=== PATIENT | female | born 1945 | race Caucasian/White ===

== ENCOUNTER → 2016-06-11 | Outpatient (CLI) | payer OTHER ==
[~2016-06-11] MED LIST: ATEN50TA8 PO; DIPH25TA24 PO; HYDR5TAB27 PO; LEVO100T84 PO; LISI-461 PO; LORA-741 PO; OXYB5TAB74 PO; PRM/45 PO; SIMV40TA2 PO; VALA500T60 PO; [UNRECOGNIZED DRUG - OTHER]; lisinopril PO
[2016-06-11 13:59] LABS: BLOOD UREA NITROGEN 14 mg/dl (7-18); BUN/CREATININE RATIO 13.2 (10-20); CALCIUM 9.2 mg/dl (8.5-10.1); CARBON DIOXIDE 29 mmol/L (21-32); CHLORIDE 102 mmol/L (98-107); GLUCOSE 82 mg/dl (70-99); POTASSIUM 3.4 mmol/L (3.5-5.1); SODIUM 139 mmol/L (136-145)
[2016-06-11 14:05] LABS: ESTIMATED AVERAGE GLUCOSE 100 mg/dl; HA1C FLAG Normal (Normal)
[2016-06-11 14:10] LABS: CHOLESTEROL 144 mg/dl (0-200); HDL CHOLESTEROL 71 mg/dl; TRIGLYCERIDES 122 mg/dl (0-150); VERY LOW DENSITY LIPOPROT CALC 24 mg/dl
== END | disposition home or self-care (01) ==
LOC: C.LABSPEC 12:24
PROVIDERS: ATTEND Internal Medicine
DX: E03.9 Hypothyroidism, unspecified (principal); I10 Essential (primary) hypertension; R73.9 Hyperglycemia, unspecified; E78.5 Hyperlipidemia, unspecified

== ENCOUNTER → 2016-07-26 | Outpatient (CLI) | payer OTHER ==
[~2016-07-26] MED LIST changes: +DTR/5 PO; -OXYB5TAB74 PO
--- NOTE | 2016-07-26 16:39 | MAMMOGRAPHY REPORT ---
BILATERAL DIGITAL SCREENING MAMMOGRAM WITH CAD: 07/26/2016 TECHNIQUE: Current study was also evaluated with a Computer Aided Detection (CAD) system. Bilatera l CC and MLO views were obtained. COMPARISON: Comparison is made to exams dated: 07/24/2015 mammogram, 07/01/2013 mammogram, 07/22/2014 m ammogram, 06/18/2012 mammogram, and 06/07/2011 mammogram - [facility]. BREAST COMPOSITION: There are scattered areas of fibroglandular density in both breasts. FINDINGS: No suspicious masses, calcifications, or areas of architectural distortion are noted in e ither breast. There has been no significant interval change compared to prior exams. IMPRESSION: ACR BI-RADS CATEGORY 1: NEGATIVE There is no mammographic evidence of malignancy. A 1 year screening mammogram is recommended. The p atient will receive written notification of the results. Approximately 10% of breast cancers are not detected with mammography. A negative mammographic repor t should not delay biopsy if a clinically suggestive mass is present. Christina Gutierrez M.D. ah/:07/26/2016 16:06:02 Supervisor Insulation: Kala MO(R)(M), [facility] letter sent: Normal 1/2 BI-RADS Code: ACR BI-RADS Category 1: Negative
== END | disposition home or self-care (01) ==
LOC: C.MAMM 13:19
PROVIDERS: ATTEND Internal Medicine
DX: Z12.31 Encounter for screening mammogram for malignant neoplasm of breast (principal)

== ENCOUNTER → 2017-01-22 | Outpatient (CLI) | payer OTHER ==
[~2017-01-22] MED LIST changes: -DTR/5 PO; +OXYB5TAB74 PO
--- NOTE | 2017-01-22 15:32 | DIAGNOSTIC IMAGING REPORT ---
RIBS BILATERAL WITH PA CHEST CLINICAL HISTORY: Bilateral rib pain status post trauma COMPARISON STUDY: No previous studies for comparison. FINDINGS: The erect chest reveals no pneumothorax. There is borderline elevation of the right hemidiaphragm. No rib fractures are visualized. IMPRESSION: No evidence of pneumothorax. No rib fractures are visualized. Electronically signed by: Jeremiah Joyce M.D. 01/22/2017 3:30 PM Dictated Date/Time: 01/22/2017 3:29 PM
--- NOTE | 2017-01-22 16:02 | DIAGNOSTIC IMAGING REPORT ---
THORACIC SPINE 3 VIEWS ROUTINE CLINICAL HISTORY: Back pain status post trauma COMPARISON STUDY: No previous studies for comparison. FINDINGS: There is a minor spinal curvature convex to the right. The paraspinal line is not displaced. There are multilevel degenerative changes. No fractures or traumatic subluxations are visualized. IMPRESSION: No fractures or traumatic subluxations are visualized on conventional radiographic imaging. Electronically signed by: Jeremiah Joyce M.D. 01/22/2017 4:00 PM Dictated Date/Time: 01/22/2017 4:00 PM
== END | disposition home or self-care (01) ==
LOC: C.RAD 14:48
PROVIDERS: ATTEND Internal Medicine
DX: S29.9XXA Unspecified injury of thorax, initial encounter (principal); W19.XXXA Unspecified fall, initial encounter

== ENCOUNTER → 2017-04-11 | Outpatient (CLI) | payer OTHER ==
[~2017-04-11] MED LIST changes: +DTR/5 PO; -OXYB5TAB74 PO
[2017-04-11 13:42] LABS: BLOOD UREA NITROGEN 22 mg/dl (7-18); BUN/CREATININE RATIO 24.9 (10-20); CALCIUM 8.8 mg/dl (8.5-10.1); CARBON DIOXIDE 30 mmol/L (21-32); CHLORIDE 103 mmol/L (98-107); CHOLESTEROL 146 mg/dl (0-200); CREATININE 0.88 mg/dl (0.60-1.20); GLUCOSE 89 mg/dl (70-99); POTASSIUM 3.7 mmol/L (3.5-5.1); SODIUM 136 mmol/L (136-145)
[2017-04-11 13:50] LABS: ALB/GLOB RATIO 0.8 (0.9-2); ALKALINE PHOSPHATASE 151 U/L (45-117); ALT/SGPT 38 U/L (12-78); AST/SGOT 22 U/L (15-37); CHOLESTEROL/HDL RATIO 2.9; HDL CHOLESTEROL 50 mg/dl; THYROID STIMULATING HORMONE 0.061 uIu/ml (0.300-4.500); TRIGLYCERIDES 89 mg/dl (0-150); VERY LOW DENSITY LIPOPROT CALC 18 mg/dl
== END | disposition home or self-care (01) ==
LOC: C.LABSPEC 12:35
PROVIDERS: ATTEND Internal Medicine
DX: Z00.00 Encounter for general adult medical examination without abnormal findings (principal); E03.9 Hypothyroidism, unspecified; E78.5 Hyperlipidemia, unspecified

== ENCOUNTER → 2017-05-26 | Outpatient (CLI) | payer OTHER ==
[2017-06-03 13:29] LABS: FECAL OCCULT BLOOD #1 NEGATIVE (NEGATIVE); FECAL OCCULT BLOOD #2 NEGATIVE (NEGATIVE); FECAL OCCULT BLOOD #3 POSITIVE (NEGATIVE)
== END | disposition home or self-care (01) ==
LOC: C.LABSPEC 12:33
PROVIDERS: ATTEND Internal Medicine
DX: Z12.11 Encounter for screening for malignant neoplasm of colon (principal)

== ENCOUNTER → 2017-06-23 | Outpatient (CLI) | payer OTHER ==
[2017-06-23 15:00] LABS: BLOOD UREA NITROGEN 41 mg/dl (7-18); CALCIUM 9.2 mg/dl (8.5-10.1); CARBON DIOXIDE 31 mmol/L (21-32); CHOLESTEROL 182 mg/dl (0-200); CREATININE 2.05 mg/dl (0.60-1.20); GLUCOSE 100 mg/dl (70-99); POTASSIUM 3.4 mmol/L (3.5-5.1); SODIUM 133 mmol/L (136-145)
[2017-06-23 15:11] LABS: LDL CHOLESTEROL (DIRECT) 106 mg/dl
[2017-06-24 06:47] LABS: HEMOGLOBIN A1C 5.6 % (4.5-5.6)
== END | disposition home or self-care (01) ==
LOC: C.LABSPEC 14:26
PROVIDERS: ATTEND Internal Medicine
DX: I10 Essential (primary) hypertension (principal); R73.9 Hyperglycemia, unspecified; E78.5 Hyperlipidemia, unspecified; E03.9 Hypothyroidism, unspecified; N39.0 Urinary tract infection, site not specified

== ENCOUNTER → 2017-06-30 | Outpatient (CLI) | payer OTHER ==
[2017-06-30 13:29] LABS: BLOOD UREA NITROGEN 19 mg/dl (7-18); CALCIUM 9.5 mg/dl (8.5-10.1); CARBON DIOXIDE 32 mmol/L (21-32); CREATININE 1.28 mg/dl (0.60-1.20); GLUCOSE 87 mg/dl (70-99); POTASSIUM 3.4 mmol/L (3.5-5.1); SODIUM 133 mmol/L (136-145)
== END | disposition home or self-care (01) ==
LOC: C.LABSPEC 12:49
PROVIDERS: ATTEND Internal Medicine
DX: R94.4 Abnormal results of kidney function studies (principal)

== ENCOUNTER → 2017-07-29 | Outpatient (CLI) | payer OTHER ==
--- NOTE | 2017-07-30 07:56 | MAMMOGRAPHY REPORT ---
BILATERAL DIGITAL SCREENING MAMMOGRAM TOMOSYNTHESIS WITH CAD: 07/29/2017 CLINICAL HISTORY: Routine screening. Patient has no complaints. TECHNIQUE: Breast tomosynthesis in addition to standard 2D mammography was performed. Current study was also evaluated with a Computer Aided Detection (CAD) system. COMPARISON: Comparison is made to exams dated: 07/26/2016 mammogram, 07/24/2015 mammogram, 07/22/2014 m ammogram, 07/01/2013 mammogram, 06/18/2012 mammogram, and 06/07/2011 mammogram - [facility]. BREAST COMPOSITION: There are scattered areas of fibroglandular density in both breasts. FINDINGS: There are mild vascular calcifications in the breasts. Scattered benign-appearing round an d punctate microcalcifications. No suspicious mass, architectural distortion or cluster of suspiciou s microcalcifications is seen. IMPRESSION: ACR BI-RADS CATEGORY 1: NEGATIVE There is no mammographic evidence of malignancy. A 1 year screening mammogram is recommended. The pa tient will receive written notification of the results. Approximately 10% of breast cancers are not detected with mammography. A negative mammographic report should not delay biopsy if a clinically suggestive mass is present. Asia Dykes M.D. ay/:07/29/2017 17:35:30 Assembly Room Supervisor: Kala Acuna, [facility] letter sent: Normal 1/2 BI-RADS Code: ACR BI-RADS Category 1: Negative
== END | disposition home or self-care (01) ==
LOC: C.MAMM 13:17
PROVIDERS: ATTEND Internal Medicine
DX: Z12.31 Encounter for screening mammogram for malignant neoplasm of breast (principal)

== ENCOUNTER 2017-11-26 20:28 | Emergency (ER) | payer OTHER ==
[~2017-11-26] VITALS: Ht 154.9 cm; Wt 78.4 kg
[2017-11-26] MEDS ORDERED: ONDANSETRON INJ 2 MG/ML 2 ML VIAL IV STA (20:48)
[2017-11-26] MEDS ORDERED: ACETAMINOPHEN 500 MG TAB PO STA (20:48)
[2017-11-26 20:52] VITALS: O2SAT 95; Ht 154.9 cm; Wt 78.4 kg
[2017-11-26 21:15] LABS: BASO % 0.1 %; BASO ABS # 0.01 K/uL (0-0.2); EOS % 0.6 %; EOS ABS # 0.07 K/uL (0-0.5); HEMATOCRIT 34.6 % (37-47); HEMOGLOBIN 11.5 g/dL (12.0-16.0); IG# 0.02 K/uL (0.00-0.02); LYMPH % 7.8 %; LYMPH ABS # 0.91 K/uL (1.2-3.4); MEAN CELL VOLUME 87.4 fL (80-100); MEAN CORPUSCULAR HGB CONC 33.2 g/dl (32-36); MEAN PLATELET VOLUME 10.2 fL (7.4-10.4); MONO % 4.8 %; MONO ABS # 0.56 K/uL (0.11-0.59); NEUT % 86.5 %; NEUT ABS # 10.05 K/uL (1.4-6.5); PLATELET COUNT 254 K/uL (130-400); RED CELL DISTRIBUTION WIDTH CV 13.5 % (11.5-14.5); RED CELL DISTRIBUTION WIDTH SD 43.2 fL (36.4-46.3); WHITE BLOOD COUNT 11.62 K/uL (4.8-10.8)
[2017-11-26 21:38] LABS: BLOOD UREA NITROGEN 12 mg/dl (7-18); CALCIUM 9.6 mg/dl (8.5-10.1); CARBON DIOXIDE 30 mmol/L (21-32); CKMB < 1.0 ng/ml (0.5-3.6); CREATININE 1.06 mg/dl (0.60-1.20); GLUCOSE 116 mg/dl (70-99); POTASSIUM 3.3 mmol/L (3.5-5.1); SODIUM 136 mmol/L (136-145)
--- NOTE | 2017-11-26 22:02 | DIAGNOSTIC IMAGING REPORT ---
CHEST ONE VIEW PORTABLE CLINICAL HISTORY: Respiratory distress COMPARISON STUDY: 01/22/2017 FINDINGS: There is elevation the right hemidiaphragm. The heart is at the upper limits of normal in size. There is no failure. There is no focal pulmonary consolidation. There are no pleural effusions.[ IMPRESSION: Elevated right hemidiaphragm. No active disease in the chest. Electronically signed by: Jeremiah Joyce M.D. 11/26/2017 10:01 PM Dictated Date/Time: 11/26/2017 10:00 PM
[2017-11-26] MEDS ORDERED: TORS20TA2 PO (22:12)
[2017-11-26] MEDS ORDERED: LEVO150T9 PO (22:12)
[2017-11-26] MEDS ORDERED: LISI-725 PO (22:12)
[2017-11-26] MEDS ORDERED: ATOR-24 PO (22:12)
[2017-11-26] MEDS ORDERED: DIPH25CA65 PO (22:14)
[2017-11-26] MEDS ORDERED: AMOX875T PO (23:33)
[2017-11-26 23:43] VITALS: BP 135/80; PULSE 69; TEMP 38; O2SAT 95
[2017-11-26] MEDS ORDERED: AMOXICIL/CLAVU 875MG HOME PACK PO ONE (23:45)
--- NOTE | 2017-11-27 01:24 | EMERGENCY ROOM VISIT NOTE ---
History Report prepared by John: Lenore Marcelo Under the Supervision of: Dr. John Johnston M.D. First contact with patient: 20:37 Chief Complaint: SHORTNESS OF BREATH Stated Complaint: SOB History of Present Illness The patient is a 72 year old female who presents to the Emergency Room with complaints of shortness of breath that started earlier today. The patient states that she has been feeling unwell for a few days and reports having a cough with mucus production, hot/cold, fever, nausea, abdominal pain, chest tightness, fatigue, weakness, right arm pain, and a headache. The patient states that she also had pain in her lower back last week, which she took pain medication for. The patient notes that her back still bothers her but the pain is not as severe as it was last week. She currently rates her overall pain a 5/ 10. The patient reports that she only ate a cookie today and took Atenolol, but she notes she has not taken medication for her pain. The patient reports a history of hypertension, hysterectomy, hyperthyroidism, urinary infections, and pneumonia. Pt denies LOC, diaphoresis, visual changes, neck pain, vomiting, abdominal pain, melena, hematochezia, urinary symptoms, numbness, lymphadenopathy, rash, or other complaints. Source of History: patient Onset: earlier today Position: chest Symptom Intensity: 5/10 Quality: other Associated Symptoms: + fevers, + headache, + cough (with mucus production), + chest pain (tightness), + nausea, + back pain, + fatigue, + weakness Note: additional symptoms: hot.cold, right arm pain Review of Systems See HPI for pertinent positives and negatives. A total of ten systems were reviewed and were otherwise negative. Past Medical & Surgical Medical Problems: (1) Bilateral tubal ligation (2) HYPERTENSION NOS (3) HYPOTHYROIDISM NOS (4) Hysterectomy (5) Pneumonia (6) PURE HYPERCHOLESTEROLEM (7) Tonsillectomy (8) Urinary tract infection Family History No pertinent family history Social History Smoking Status: Never Smoker Drug Use: none Marital Status: Housing Status: lives with family Current/Historical Medications Scheduled Amoxicillin & Pot Clavulanate (Augmentin 875-125 mg), 875 MG PO BID Atenolol (Tenormin), 50 MG PO BID Atorvastatin (Lipitor), 40 MG PO DAILY Levothyroxine Sodium (Levothyroxine Sodium), 1 TAB PO DAILY Lisinopril (Zestril), 20 MG PO DAILY Torsemide (Demadex), 1 TAB PO DAILY Scheduled PRN Diphenhydramine Hcl (Benadryl Allergy), 1 CAP PO HS PRN for ALLERGIES Lorazepam (Ativan), 0.5 MG PO TID PRN Allergies Coded Allergies: No Known Allergies (Verified , 11/26/17) Physical Exam Vital Signs Date Time Temp Pulse Resp B/P (MAP) Pulse Ox O2 Delivery O2 Flow Rate FiO2 11/26/17 23:43 38.0 69 21 135/80 95 11/26/17 22:35 69 21 135/80 95 Room Air 11/26/17 22:03 70 147/80 11/26/17 21:28 74 24 159/102 11/26/17 20:52 95 Room Air 11/26/17 20:50 95 Room Air 11/26/17 20:41 88 11/26/17 20:30 38.0 90 22 184/104 93 Room Air Physical Exam GENERAL: Awake, alert, uncomfortable-appearing, in no distress HENT: Normocephalic, atraumatic. Oropharynx unremarkable. EYES: Normal conjunctiva. Sclera non-icteric. NECK: Supple. No nuchal rigidity. FROM. No masses. RESPIRATORY: Clear to auscultation. No wheezes. No rales. Normal respiratory effort. CARDIAC: Normal rate. Normal rhythm. No murmurs. No rubs. Extremities warm and well perfused. Pulses equal. No JVD. GI: Soft, non-distended. No tenderness to palpation. No rebound or guarding. No masses. RECTAL: Deferred. MUSCULOSKELETAL: Atraumatic. Chest examination reveals no tenderness. The back is symmetrical on inspection without obvious abnormality. There is no CVA tenderness to palpation. No joint edema. LOWER EXTREMITIES: Calves are equal size bilaterally and non-tender. No edema. No discoloration. NEURO: Normal sensorium. No sensory or motor deficits noted. SKIN: No rash or jaundice noted. Medical Decision & Procedures ER Provider Diagnostic Interpretation: Radiology results as stated below per my review and radiologist interpretation: CHEST ONE VIEW PORTABLE CLINICAL HISTORY: Respiratory distress COMPARISON STUDY: 01/22/2017 FINDINGS: There is elevation the right hemidiaphragm. The heart is at the upper limits of normal in size. There is no failure. There is no focal pulmonary consolidation. There are no pleural effusions.[ IMPRESSION: Elevated right hemidiaphragm. No active disease in the chest. Electronically signed by: Jeremiah Joyce M.D. 11/26/2017 10:01 PM Dictated Date/Time: 11/26/2017 10:00 PM Laboratory Results 11/26/17 21:03 Red Blood Count 3.96, Mean Corpuscular Volume 87.4, Mean Corpuscular Hemoglobin 29.0, Mean Corpuscular Hemoglobin Concent 33.2, Mean Platelet Volume 10.2, Neutrophils (%) (Auto) 86.5, Lymphocytes (%) (Auto) 7.8, Monocytes (%) (Auto) 4.8, Eosinophils (%) (Auto) 0.6, Basophils (%) (Auto) 0.1, Neutrophils # (Auto) 10.05, Lymphocytes # (Auto) 0.91, Monocytes # (Auto) 0.56, Eosinophils # (Auto) 0.07, Basophils # (Auto) 0.01 11/26/17 21:03 Test 11/26/17 21:03 11/26/17 21:09 11/26/17 22:55 White Blood Count 11.62 K/uL (4.8-10.8) Red Blood Count 3.96 M/uL (4.2-5.4) Hemoglobin 11.5 g/dL (12.0-16.0) Hematocrit 34.6 % (37-47) Mean Corpuscular Volume 87.4 fL (80-100) Mean Corpuscular Hemoglobin 29.0 pg (25-34) Mean Corpuscular Hemoglobin Concent 33.2 g/dl (32-36) Platelet Count 254 K/uL (130-400) Mean Platelet Volume 10.2 fL (7.4-10.4) Neutrophils (%) (Auto) 86.5 % Lymphocytes (%) (Auto) 7.8 % Monocytes (%) (Auto) 4.8 % Eosinophils (%) (Auto) 0.6 % Basophils (%) (Auto) 0.1 % Neutrophils # (Auto) 10.05 K/uL (1.4-6.5) Lymphocytes # (Auto) 0.91 K/uL (1.2-3.4) Monocytes # (Auto) 0.56 K/uL (0.11-0.59) Eosinophils # (Auto) 0.07 K/uL (0-0.5) Basophils # (Auto) 0.01 K/uL (0-0.2) RDW Standard Deviation 43.2 fL (36.4-46.3) RDW Coefficient of Variation 13.5 % (11.5-14.5) Immature Granulocyte % (Auto) 0.2 % Immature Granulocyte # (Auto) 0.02 K/uL (0.00-0.02) Anion Gap 6.0 mmol/L (3-11) Est Creatinine Clear Calc Drug Dose 44.1 ml/min Estimated GFR () 59.9 Estimated GFR (Non- 51.7 BUN/Creatinine Ratio 11.7 (10-20) Calcium Level 9.6 mg/dl (8.5-10.1) Total Creatine Kinase 61 U/L (26-192) Creatine Kinase MB < 1.0 ng/ml (0.5-3.6) Creatine Kinase MB Ratio (0-3.0) Troponin I < 0.015 ng/ml (0-0.045) Bedside Lactic Acid Venous 1.21 mmol/L (0.90-1.70) Urine Color YELLOW Urine Appearance CLEAR (CLEAR) Urine pH 8.0 (4.5-7.5) Urine Specific [place] 1.017 (1.000-1.030) Urine Protein NEG (NEG) Urine Glucose (UA) NEG (NEG) Urine Ketones NEG (NEG) Urine Occult Blood TRACE (NEG) Urine Nitrite NEG (NEG) Urine Bilirubin NEG (NEG) Urine Urobilinogen NEG (NEG) Urine Leukocyte Esterase NEG (NEG) Urine WBC (Auto) 1-5 /hpf (0-5) Urine RBC (Auto) 0-4 /hpf (0-4) Urine Hyaline Casts (Auto) 1-5 /lpf (0-5) Urine Epithelial Cells (Auto) >30 /lpf (0-5) Urine Bacteria (Auto) NEG (NEG) Laboratory results reviewed by me Medications Administered Medications (Trade) Dose Ordered Sig/Nadir Route Start Time Stop Time Status Last Admin Dose Admin Acetaminophen (Tylenol Tab) 1,000 mg NOW STAT PO 11/26/17 20:48 11/26/17 20:51 DC 11/26/17 21:09 1,000 MG Ondansetron HCl (Zofran Inj) 4 mg NOW STAT IV 11/26/17 20:48 11/26/17 20:51 DC 11/26/17 21:09 4 MG Amoxicillin/ Clavulanate Potassium (Augmentin 875MG Home Pack) 1 homepack UD ONCE PO 11/26/17 23:45 11/26/17 23:46 DC 11/26/17 23:37 1 HOMEPACK ECG Per My Interpretation Indication: SOB/dyspnea Rate (beats per minute): 90 Rhythm: normal sinus Findings: other (no ST elevation, no ST depression, no PACs, no PVCs) ED Course 2044: The patient was evaluated in room C11B. A complete history and physical exam was performed. 2047: Ordered Zofran Inj 4 mg IV, Tylenol Tab 1000 mg PO. 4: I reevaluated the patient. Discussed results and discharge instructions: She verbalized understanding and agreement. The patient is ready for discharge. 5: Ordered Amoxicillin/Clavulanate Potassium 1 homepack PO. Medical Decision Prior records/ancillary studies reviewed. Triage Nursing notes reviewed and agree them. Additional history obtained from the patient's . The patient's history was concerning for fever, flulike symptoms. Differential diagnosis: Etiologies such as otitis, pharyngitis, pneumonia, influenza,meningitis, urinary tract infection, sepsis, bacteremia, viral syndrome, as well as others were entertained. Physical examination: As above. ER treatment provided: IV Zofran Oral Tylenol On reassessment the patient felt much better. Diagnostics interpreted by me: ECG: Normal The labs revealed a slight leukocytosis on CBC. Chemistry panel was unremarkable. Cardiac markers negative. Her urinalysis was unremarkable. Imaging studies: Chest x-ray as above The patient had flulike symptoms. She has had a productive cough. She does note a history of pneumonia. Her chest x-ray did not show any obvious findings however she did have a leukocytosis. Her fever resolved with Tylenol. She does note some sinus drainage as well. I discussed treatment with Augmentin, Tylenol, rest, and fluids with close outpatient follow-up and the patient and felt very comfortable with this plan. Given the productive cough, shortness of breath and fever I am concerned about an early pneumonia and an early sinus infections possible as well. I gave my usual and customary discussion regarding this issue. By the evaluation outlined above other emergent etiologies such as those listed in the differential, as well as others, were deemed relatively unlikely. The patient was educated about the findings as listed above. All questions were answered and the patient was pleased with the treatment. Return instructions were outlined and the patient was discharged in stable condition. The patient was referred to her PCP for follow-up for a recheck of the current condition. Medication Reconcilliation Current Medication List: was personally reviewed by me Blood Pressure Screening Patient's blood pressure: Elevated blood pressure Blood pressure disposition: Referred to PCP Impression Primary Impression: Febrile illness Additional Impression: Productive cough Scribe Attestation The scribe's documentation has been prepared under my direction and personally reviewed by me in its entirety. I confirm that the note above accurately reflects all work, treatment, procedures, and medical decision making performed by me. Departure Information Dispostion Home / Self-Care Prescriptions Amoxicillin & Pot Clavulanate (Augmentin 875-125 mg) 1 Tab Tab 875 MG PO BID for 7 Days, #14 TAB Prov: John Johnston MD 11/26/17 Referrals Abimael Perdomo M.D. (PCP) Forms HOME CARE DOCUMENTATION FORM, IMPORTANT VISIT INFORMATION Patient Instructions My [facility] Additional Instructions Amoxicillin Clavulanate (Augmentin) 875mg: Take one pill twice daily for 7 days for your infection. All antibiotics can cause diarrhea. If this occurs and you feel worse or it does not resolve in 1-2 days follow up with your doctor or return to the Emergency Department as this could be signs of serious underlying problems. Any medication can cause an allergic reaction, stop the pills immediately and return to the ER for rash, hives, breathing difficulties, or swelling. Acetaminophen(Tylenol) may be used for fever or pain. Use 1000mg every six hours as needed. Avoid using more than 4000mg in a 24 hour period. AND/OR Ibuprofen(Motrin, Advil) may be used for fever or pain. Use 600mg every six hours as needed. Take with food. Avoid using more than 2400mg in a 24 hour period. Do not use 2400mg per day for more than three consecutive days without physician direction. Prolonged inappropriate use can lead to stomach upset or ulcers. Controlling your fever with Tylenol and Ibuprofen as above will make you feel better. Rest and drink plenty of fluids. Avoid strenuous activity until your symptoms resolve and your breathing returns to normal. Return to the ER for chest pain, difficulty breathing, persistent fevers, vomiting, worsening of your condition, or as needed. Follow up with your primary physician in 1-2 days for a recheck of the current condition. Problem Qualifiers
== END 2017-11-26 23:44 | disposition home or self-care (01) ==
LOC: C.EDB 20:28 → C.EDA 23:44
DX: R50.9 Fever, unspecified (principal); R05 Cough; D72.829 Elevated white blood cell count, unspecified; R11.0 Nausea; R10.9 Unspecified abdominal pain; R07.89 Other chest pain; R53.83 Other fatigue; R53.1 Weakness; R51 Headache; M79.601 Pain in right arm; I10 Essential (primary) hypertension; E03.9 Hypothyroidism, unspecified; E78.5 Hyperlipidemia, unspecified; Z79.899 Other long term (current) drug therapy

== ENCOUNTER 2022-02-15 19:25 | Inpatient (IN) ==
[2022-02-15 20:04] LABS: Basophils # (auto) 0.02 K/uL (0-0.2); Basophils % (auto) 0.4 %; Eosinophils # (auto) 0.03 K/uL (0-0.50); Eosinophils % (auto) 0.6 %; Hemoglobin 11.5 g/dl (12.0-16.0); Immature Granulocytes # (auto) 0.02 K/uL (0.00-0.02); Immature Granulocytes % (auto) 0.4 %; Lymphocytes # (auto) 1.78 K/uL (1.2-3.4); Lymphocytes % (auto) 33.8 %; Mean Corpuscular Hemoglobin 28.7 pg (25.0-34.0); Mean Corpuscular Hgb Conc 33.8 g/dL (32.0-36.0); Mean Corpuscular Volume 84.8 fL (80.0-100.0); Mean Platelet Volume 9.3 fL (9.4-12.3); Monocytes # (auto) 0.46 K/uL (0.24-0.82); Monocytes % (auto) 8.7 %; Neutrophils # (auto) 2.96 K/uL (1.4-6.5); Neutrophils % (auto) 56.1 %; Platelet Count 393 K/uL (130-400); RDW Coefficient of Variation 17.2 % (11.5-14.5); RDW Standard Deviation 53.3 fL (36.4-46.3); Red Blood Count 4.01 M/uL (3.93-5.22); White Blood Count 5.27 K/ul (4.8-10.8)
--- NOTE | 2022-02-15 20:36 | Emergency Department Note ---
Impression & Plan Acute hyponatremia, Flank pain, Acute hypokalemia ED Provider Note NAME: ARLINE EMANUEL AGE: 76 SEX: F : 1945 ARRIVES VIA: Walk-In INFORMANT: Patient, ED PROVIDER(S): Blade Landry MD Chief Complaint: Abnormal labs, abdominal and back pain HPI: Patient presents with the above symptoms and states that she has had some pain that has been fairly constant over the last 2 weeks and presented to her primary care office where she had routine blood work completed along with a urinalysis. The patient was started on antibiotics but was told that her urinalysis was negative. Patient only took 2 doses. Patient says that her pain is primarily in the upper abdomen and right flank. No recent falls or trauma. Patient did have a recent trip to [place] does have some chronic leg swelling and does take a diuretic but this is since improved. The patient denies any calf pain or asymmetry. The patient denies any shortness of breath or chest pains. Patient did take some Tylenol at home for some of her discomfort but this is not much improved her symptoms. The patient denies any nausea. No history of k idney stones or blood in urine or stool. The patient denies any dysuria. The patient was also told that she had low sodium and potassium ROS: See HPI for pertinent positives and negatives. A total of 10 systems were reviewed and otherwise negative. Past medical history: See below Surgical history: See below Social history: See below Physical Exam: GENERAL: NAD, wearing a mask, non-toxic. EYE EXAM: Normal conjunctiva. PERRL, no anisocoria and EOM's grossly intact w/o pain. NECK: Supple, no nuchal rigidity, no adenopathy, non-tender. No signs of meningismus. FROM of the neck with good chin to chest and neck extension. No stridor. LUNGS: Clear to auscultation. Normal chest wall mechanics. HEART: NSR, no MRG. ABDOMEN: Abdomen soft, non-tender, normo-active bowel sounds, no masses, no r ebound or guarding. BACK: Mild right-sided flank discomfort. No overlying skin changes SKIN: No rashes and no bruising. UPPER EXTREMITIES: Upper extremities are grossly normal. LOWER EXTREMITIES: Grossly normal, no edema. NEURO EXAM: A&O x3, cranial nerves II-XII grossly intact, normal speech, moves all 4 extremities. Differential diagnoses: Appendicitis, ovarian cyst, ovarian torsion, ectopic , TOA, PID, infections, diverticulitis, UTI, obstruction, mesenteric ischemia, aortic pathology, inflammatory bowel disease, renal colic, PUD, pancreatitis, biliary pathology, hernia, volvulus, constipation, as well as other pathologies. Course: Patient was seen and evaluated the bedside. Full history physical exam was performed. Imaging Studies: See Below Cardiac monitoring: An order was placed for continuous cardiac monitoring. The monitor shows a rate of 67 with sinus rhythm. MDM: Patient was seen due to concern for abdominal pain and atypical labs. Patient did have repeat blood work completed here. The patient was ordered urine and serum electrolytes and osmolality. The patient does have hypokalemia and hyponatremia. Fluid restriction at this time. CT abdomen pelvis obtained. Patient's blood work showed a normal white counts mild anemia hemoglobin 11.5. The patient's kidney function shows a creatinine 1.37 with a sodium of 128 potassium was 3. Osmolality is low at 273. Urinalysis does show a lot of skin cells but does show whites and bacteria and CT abdomen pelvis CT shows diverticulosis but no diverticulitis and advanced coronary artery calcification and does show possibility of cystitis. Will treat with 1 dose of antibiotics at this time. I did reassess the patient and the patient was having some mild nausea. Additional nausea medications were ordered. The patient preferred to stay in hospital at this time. I did speak with the on-call hospitalist Dr. Cheung and the patient was admitted to the medicine service. Past Med/Surg History Medical History (Updated 02/16/22 @ 00:30 by Blade Landry MD) Frequent PVCs Hypertension Trochanteric bursitis of both hips Surgical History (Updated 02/16/22 @ 00:27 by Blade Landry MD) H/O: hysterectomy Social History (Updated 02/16/22 @ 00:28 by Blade Landry MD) Smoking Status: Never smoker Hx Alcohol Use: No Hx Substance Use: No Feels Safe at Home: Yes Allergies Allergies Allergy/AdvReac Type Severity Reaction Status Date / Time No Known Allergies Allergy Unknown Verified 02/15/22 21:33 Home Meds Home Medications Medication Instructions Recorded Confirmed Mucous Relief 1,200 mg PO DIRECTED PRN 02/15/22 02/15/22 Congestion acetaminophen 500 mg tablet 1,000 mg PO DIRECTED PRN 02/15/22 02/15/22 (Tylenol Extra Strength) PAIN/FEVER albuterol sulfate 90 mcg/actuation 2 puff inhalation DIRECTED PRN 02/15/22 02/15/22 aerosol inhaler Shortness Of Breath amlodipine 5 mg tablet 5 mg PO DAILY 02/15/22 02/15/22 aspirin 81 mg tablet,delayed 81 mg PO DAILY 02/15/22 02/15/22 release atenolol 25 mg tablet 25 mg PO BID 02/15/22 02/15/22 atorvastatin 40 mg tablet 40 mg PO HS 02/15/22 02/15/22 ciprofloxacin HCl 500 mg tablet 500 mg PO BID 02/15/22 02/15/22 levothyroxine 125 mcg tablet 125 mcg PO 5XWK 02/15/22 02/15/22 lorazepam 0.5 mg tablet 0.5 mg PO TID PRN Anxiety 02/15/22 02/15/22 triamterene 37.5 1 tab PO DAILY 02/15/22 02/15/22 mg-hydrochlorothiazide 25 mg tablet Results & Data (ED) Vital Signs Vital Signs - 24 hr 02/15/22 19:27 02/15/22 20:52 02/15/22 22:02 Temperature 36.6 C Temperature Source Temporal Artery Scan Pulse Rate 74 58 L Pulse Rate [Apical] 59 L Pulse Rate from SpO2 Sensor Respiratory Rate 16 18 17 Respiratory Effort / Characteristics Non-Labored Respiratory Depth Normal Blood Pressure 142/85 H 151/81 H Blood Pressure [Right Arm] 150/89 H Blood Pressure Mean 104 104 Blood Pressure Mean [Right Arm] 109 Pulse Oximetry 94 96 94 Oxygen Delivery Method Room Air Room Air Sepsis Recent Fever Within 48 Hours No Sepsis New/Unexplained Change in Mental Status No Sepsis Action Taken by Nursing No Action Required 02/15/22 23:00 Temperature Temperature Source Pulse Rate 62 Pulse Rate [Apical] Pulse Rate from SpO2 Sensor 63 Respiratory Rate 12 Respiratory Effort / Characteristics Respiratory Depth Blood Pressure 164/96 H Blood Pressure [Right Arm] Blood Pressure Mean 118 Blood Pressure Mean [Right Arm] Pulse Oximetry 96 Oxygen Delivery Method Sepsis Recent Fever Within 48 Hours Sepsis New/Unexplained Change in Mental Status Sepsis Action Taken by Skilled Nursing Medications Current Medication List: was personally reviewed by me Laboratory Data Attestation: I reviewed the patient's lab results. Result diagrams: 02/15/22 19:42 02/15/22 19:42 Lab Results 02/15/22 02/15/22 02/15/22 Range/Units 19:42 19:42 19:42 WBC 5.27 (4.8-10.8) K/ul RBC 4.01 (3.93-5.22) M/uL Hgb 11.5 L (12.0-16.0) g/dl Hct 34.0 L (34.1-44.9) % MCV 84.8 (80.0-100.0) fL MCH 28.7 (25.0-34.0) pg MCHC 33.8 (32.0-36.0) g/dL RDW Std Deviation 53.3 H (36.4-46.3) fL RDW Coeff of Joyce 17.2 H (11.5-14.5) % Plt Count 393 (130-400) K/uL MPV 9.3 L (9.4-12.3) fL Immature Gran % (Auto) 0.4 % Neut % (Auto) 56.1 % Lymph % (Auto) 33.8 % Bullock % (Auto) 8.7 % Eos % (Auto) 0.6 % Baso % (Auto) 0.4 % Neut # (Auto) 2.96 (1.4-6.5) K/uL Lymph # (Auto) 1.78 (1.2-3.4) K/uL Bullock # (Auto) 0.46 (0.24-0.82) K/uL Eos # (Auto) 0.03 (0-0.50) K/uL Baso # (Auto) 0.02 (0-0.2) K/uL Immature Gran # (Auto) 0.02 (0.00-0.02) K/uL Sodium 128 L (136-145) mmol/L Potassium 3.0 L (3.5-5.1) mmol/L Chloride 90 L (98-107) mmol/L Carbon Dioxide 30 (21-32) mmol/L Anion Gap 8 (3-11) BUN 22 (6-23) mg/dl Creatinine 1.37 H (0.6-1.2) mg/dl Est Cr Clr Drug Dosing 33.2 ml/min Est GFR ( Amer) 42.7 ml/min Est GFR (Non-Af Amer) 36.9 ml/min BUN/Creatinine Ratio 16.1 (10-20) Glucose 87 (70-99(Fasting)) mg/dl Osmolality 273 L (280-300) mOsm/kg Calcium 9.5 (8.5-10.1) mg/dl Magnesium 2.0 (1.7-2.4) mg/dl Total Bilirubin 0.6 (0.2-1.0) mg/dl AST 18 (13-39) U/L ALT 14 (7-52) U/L Alkaline Phosphatase 105 H (34-104) U/L Total Protein 8.4 H (6.0-8.3) gm/dl Albumin 4.1 (3.4-5.0) gm/dl Globulin 4.3 H (2.5-4.0) gm/dl Albumin/Globulin Ratio 1.0 (0.9-2) Lipase 41 (11-82) U/L Urine Color Urine Appearance (Clear) Urine pH (4.5-7.5) Ur Specific [place] (1.000-1.030) Urine Protein (Negative) Urine Glucose (UA) (Negative) Urine Ketones (Negative) Urine Blood (Negative) Urine Nitrite (Negative) Urine Bilirubin (Negative) Urine Urobilinogen (Negative) Ur Leukocyte Esterase (Negative) Urine WBC (Auto) (0-5) /hpf Urine RBC (Auto) (0-4) /hpf U Hyaline Cast (Auto) (0-5) /lpf U Epithel Cells (Auto) (0-5) /lpf Urine Bacteria (Auto) (Negative) Urine Osmolality (500-800) mOsm/kg Urine Sodium mmol/L Urine Potassium mmol/L Urine Chloride mmol/L SARS-CoV-2, RNA, NAAT (NEGATIVE) 02/15/22 02/15/22 02/15/22 Range/Units 21:15 21:15 21:15 WBC (4.8-10.8) K/ul RBC (3.93-5.22) M/uL Hgb (12.0-16.0) g/dl Hct (34.1-44.9) % MCV (80.0-100.0) fL MCH (25.0-34.0) pg MCHC (32.0-36.0) g/dL RDW Std Deviation (36.4-46.3) fL RDW Coeff of Joyce (11.5-14.5) % Plt Count (130-400) K/uL MPV (9.4-12.3) fL Immature Gran % (Auto) % Neut % (Auto) % Lymph % (Auto) % Bullock % (Auto) % Eos % (Auto) % Baso % (Auto) % Neut # (Auto) (1.4-6.5) K/uL Lymph # (Auto) (1.2-3.4) K/uL Bullock # (Auto) (0.24-0.82) K/uL Eos # (Auto) (0-0.50) K/uL Baso # (Auto) (0-0.2) K/uL Immature Gran # (Auto) (0.00-0.02) K/uL Sodium (136-145) mmol/L Potassium (3.5-5.1) mmol/L Chloride (98-107) mmol/L Carbon Dioxide (21-32) mmol/L Anion Gap (3-11) BUN (6-23) mg/dl Creatinine (0.6-1.2) mg/dl Est Cr Clr Drug Dosing ml/min Est GFR ( Amer) ml/min Est GFR (Non-Af Amer) ml/min BUN/Creatinine Ratio (10-20) Glucose (70-99(Fasting)) mg/dl Osmolality (280-300) mOsm/kg Calcium (8.5-10.1) mg/dl Magnesium (1.7-2.4) mg/dl Total Bilirubin (0.2-1.0) mg/dl AST (13-39) U/L ALT (7-52) U/L Alkaline Phosphatase (34-104) U/L Total Protein (6.0-8.3) gm/dl Albumin (3.4-5.0) gm/dl Globulin (2.5-4.0) gm/dl Albumin/Globulin Ratio (0.9-2) Lipase (11-82) U/L Urine Color Dark Yellow Urine Appearance Clear (Clear) Urine pH 6.5 (4.5-7.5) Ur Specific [place] 1.023 (1.000-1.030) Urine Protein Trace H (Negative) Urine Glucose (UA) Negative (Negative) Urine Ketones Trace H (Negative) Urine Blood Negative (Negative) Urine Nitrite Negative (Negative) Urine Bilirubin Negative (Negative) Urine Urobilinogen Negative (Negative) Ur Leukocyte Esterase Negative (Negative) Urine WBC (Auto) 5-10 H (0-5) /hpf Urine RBC (Auto) 0-4 (0-4) /hpf U Hyaline Cast (Auto) 1-5 (0-5) /lpf U Epithel Cells (Auto) >30 H (0-5) /lpf Urine Bacteria (Auto) 1+ H (Negative) Urine Osmolality 545 (500-800) mOsm/kg Urine Sodium 95 mmol/L Urine Potassium 40.1 mmol/L Urine Chloride 90 mmol/L SARS-CoV-2, RNA, NAAT (NEGATIVE) 02/15/22 Range/Units 23:20 WBC (4.8-10.8) K/ul RBC (3.93-5.22) M/uL Hgb (12.0-16.0) g/dl Hct (34.1-44.9) % MCV (80.0-100.0) fL MCH (25.0-34.0) pg MCHC (32.0-36.0) g/dL RDW Std Deviation (36.4-46.3) fL RDW Coeff of Joyce (11.5-14.5) % Plt Count (130-400) K/uL MPV (9.4-12.3) fL Immature Gran % (Auto) % Neut % (Auto) % Lymph % (Auto) % Bullock % (Auto) % Eos % (Auto) % Baso % (Auto) % Neut # (Auto) (1.4-6.5) K/uL Lymph # (Auto) (1.2-3.4) K/uL Bullock # (Auto) (0.24-0.82) K/uL Eos # (Auto) (0-0.50) K/uL Baso # (Auto) (0-0.2) K/uL Immature Gran # (Auto) (0.00-0.02) K/uL Sodium (136-145) mmol/L Potassium (3.5-5.1) mmol/L Chloride (98-107) mmol/L Carbon Dioxide (21-32) mmol/L Anion Gap (3-11) BUN (6-23) mg/dl Creatinine (0.6-1.2) mg/dl Est Cr Clr Drug Dosing ml/min Est GFR ( Amer) ml/min Est GFR (Non-Af Amer) ml/min BUN/Creatinine Ratio (10-20) Glucose (70-99(Fasting)) mg/dl Osmolality (280-300) mOsm/kg Calcium (8.5-10.1) mg/dl Magnesium (1.7-2.4) mg/dl Total Bilirubin (0.2-1.0) mg/dl AST (13-39) U/L ALT (7-52) U/L Alkaline Phosphatase (34-104) U/L Total Protein (6.0-8.3) gm/dl Albumin (3.4-5.0) gm/dl Globulin (2.5-4.0) gm/dl Albumin/Globulin Ratio (0.9-2) Lipase (11-82) U/L Urine Color Urine Appearance (Clear) Urine pH (4.5-7.5) Ur Specific [place] (1.000-1.030) Urine Protein (Negative) Urine Glucose (UA) (Negative) Urine Ketones (Negative) Urine Blood (Negative) Urine Nitrite (Negative) Urine Bilirubin (Negative) Urine Urobilinogen (Negative) Ur Leukocyte Esterase (Negative) Urine WBC (Auto) (0-5) /hpf Urine RBC (Auto) (0-4) /hpf U Hyaline Cast (Auto) (0-5) /lpf U Epithel Cells (Auto) (0-5) /lpf Urine Bacteria (Auto) (Negative) Urine Osmolality (500-800) mOsm/kg Urine Sodium mmol/L Urine Potassium mmol/L Urine Chloride mmol/L SARS-CoV-2, RNA, NAAT NEGATIVE (NEGATIVE) Administered Medications Promethazine HCl (Phenergan) 12.5 mg in 50.5 mls @ 202 mls/hr IV NOW STA Stop: 02/16/22 00:32 Last Admin: 02/16/22 00:21 Dose: 202 mls/hr Documented By: Discontinued Medications Sodium Chloride (Nss 1000ml) 500 mls @ 999 mls/hr IV .Q31M ONE Stop: 02/15/22 21:33 Last Infusion: 02/15/22 22:46 Dose: 0 mls/hr Documented By: Admin: 02/15/22 21:09 Dose: 999 mls/hr Documented By: MELLISA Potassium Chloride (K Roberto / Wtr) 10 meq in 100 mls @ 100 mls/hr IV ONE ONE; Protocol Stop: 02/15/22 22:02 Last Infusion: 02/15/22 22:46 Dose: 0 mls/hr Documented By: Admin: 02/15/22 21:09 Dose: 100 mls/hr Documented By: MELLISA Ceftriaxone Sodium (Rocephin) 2,000 mg in 70 mls @ 140 mls/hr IV NOW STA Stop: 02/15/22 23:19 Last Infusion: 02/15/22 23:47 Dose: 0 mls/hr Documented By: Admin: 02/15/22 23:19 Dose: 140 mls/hr Documented By: MELLISA Ioversol (Optiray 350 100ml) 88 ml IV ONCE ONE Stop: 02/15/22 21:45 Last Admin: 02/15/22 21:44 Dose: 88 ml Documented By: QUIANA Morphine Sulfate (Morphine Sulfate 2 Mg/Ml Carp) 2 mg IV NOW STA Stop: 02/15/22 21:04 Last Admin: 02/15/22 21:08 Dose: 2 mg Documented By: MELLISA Ondansetron HCl (Ondansetron Inj 2 Mg/Ml 2 Ml Vial) 4 mg IV NOW STA Stop: 02/15/22 23:42 Last Admin: 02/15/22 23:47 Dose: 4 mg Documented By: MELLISA Promethazine HCl (Promethazine 12.5 Mg/50.5 Ml Nss) Confirm Administered Dose 12.5 mg IV .STK-MED ONE Stop: 02/16/22 00:18 Last Admin: 02/16/22 00:21 Dose: Not Given Documented By: MELLISA Imaging Data Radiologist's Impression: Abdomen/Pelvis CT 02/15/22 21:03 CT SCAN OF THE ABDOMEN AND PELVIS WITH IV CONTRAST CLINICAL HISTORY: Upper abdominal pain. COMPARISON STUDY: Abdominal CT dated 01/25/2013. TECHNIQUE: Following the IV administration of 88 cc of Optiray 350, CT scan of the abdomen and pelvis is performed from the lung bases to the proximal femora. Images are reviewed in the axial, sagittal, and coronal planes. IV contrast was administered without complication. A dose lowering technique was utilized adhering to the principles of ALARA. CT DOSE: 606.50 mGy.cm FINDINGS: Lung bases: The heart is normal in size and without pericardial effusion. The coronary arteries are densely calcified. There is elevation of the right hemidiaphragm with associated right basilar atelectasis. There is no airspace consolidation typical for pneumonia or pleural effusion. Liver: The contrast-enhanced liver is normal in size, contour, and attenuation. There is no intrahepatic biliary ductal dilatation. The hepatic veins and portal veins are patent. A 12 mm hypodensity in the hepatic dome on image #16 may represent a hemangioma. An indeterminant calcification containing lesion in the right lobe is seen on image #56. These have been present dating back to 2012 and are of doubtful significance. Gallbladder: Unremarkable. Spleen: Normal in size and attenuation. Pancreas: Unremarkable. Adrenal glands: Unremarkable. Kidneys: The contrast enhanced kidneys demonstrate mild cortical atrophy and are without hydronephrosis. The kidneys enhance symmetrically. Scattered subcentimeter cortical hypodensities likely represent cysts but are too small for definitive characterization. Abdominal vasculature: The abdominal aorta is normal in course and caliber noting moderate atherosclerotic calcification. Bowel: There is mild to moderate colonic diverticulosis without CT evidence of acute diverticulitis. No bowel obstruction is seen. [id number]-xt-uexyysan fecal retention is noted throughout the colon. There is a tiny duodenal diverticulum. The appendix is well-visualized and normal. Peritoneum: There is no intraperitoneal free air or abdominal ascites. There is a fat-containing umbilical hernia. Lymphadenopathy: None. Pelvic viscera: The bladder is decompressed, and the wall appears thickened and hyperemic. The uterus is surgically absent. No adnexal lesion is seen. Skeletal structures: The skeletal structures are osteopenic. There is mild to moderate lumbosacral spondylosis. No lytic or blastic lesions are seen. IMPRESSION: 1. Question cystitis. Correlate with clinical findings and urinalysis. 2. Colonic diverticulosis without CT evidence of acute diverticulitis. 3. Advanced coronary artery calcification. 4. Additional findings as above. ACT 112: Negative or not required by law. Electronically signed by: Marlon Jean M.D. 02/15/2022 10:33 PM Discharge Plan Visit Data Chief Complaint: Abnormal Labs/Diagnostic Testing Stated Complaint: LOW SODIUM, LOW POTASSIUM. ABD + BACK PAIN DR REF ED Provider: Blade Landry Discharge Problem: Acute hyponatremia, Flank pain, Acute hypokalemia Patient Disposition: Admitted As Inpatient Forms Stand Alone Forms: My [facility] Prescriptions Prescriptions: No Action atorvastatin 40 mg tablet 40 mg PO HS atenolol 25 mg tablet 25 mg PO BID amlodipine 5 mg tablet 5 mg PO DAILY ciprofloxacin HCl 500 mg tablet 500 mg PO BID Rx Instructions: TOLD TO STOP----STARTED 02/14/22 FOR 7 DAYS. aspirin 81 mg Tablet,Delayed Release (Dr/Ec) 81 mg PO DAILY acetaminophen [Tylenol Extra Strength] 500 mg Tablet 1,000 mg PO DIRECTED PRN (Reason: PAIN/FEVER) lorazepam 0.5 mg tablet 0.5 mg PO TID PRN (Reason: Anxiety) Rx Instructions: PER PT "USUALLY TAKE ONE AT HS TO HELP SLEEP". levothyroxine 125 mcg tablet 125 mcg PO 5XWK Rx Instructions: DO NOT TAKE ON FRIDAY & SUNDAYS. triamterene-hydrochlorothiazid 37.5-25 mg tablet 1 tab PO DAILY albuterol sulfate 90 mcg/actuation HFA aerosol inhaler 2 puff INHALATION DIRECTED PRN (Reason: Shortness Of Breath) Mucous Relief 1,200 mg PO DIRECTED PRN (Reason: Congestion) Referrals Referrals: Alcon Apple DO [Primary Care Provider] -
[2022-02-15 20:47] LABS: Albumin Level 4.1 gm/dl (3.4-5.0); BUN Creatinine Ratio 16.1 (10-20); Bilirubin,Total 0.6 mg/dl (0.2-1.0); Calcium 9.5 mg/dl (8.5-10.1); Creatinine Clr Calc Pharmacy 33.2 ml/min; Est GFR (African American) 42.7 ml/min; Est GFR (Non-African American) 36.9 ml/min; Globulin 4.3 gm/dl (2.5-4.0); Total Protein 8.4 gm/dl (6.0-8.3)
[2022-02-15] MEDS ORDERED: SODIUM CHLORIDE 0.9% 1000ML 500 ML IV ONE (21:03)
[2022-02-15] MEDS ORDERED: POTASSIUM CHLORIDE / WTR 10 MEQ/100 ML PLCT IV ONE (21:03)
[2022-02-15] MEDS ORDERED: MoRPHine SULFATE 2 MG/ML CARP IV STA (21:03)
[2022-02-15 21:29] LABS: Appearance Urine Clear (Clear); Bacteria Urine Automated 1+ (Negative); Bilirubin Urine Negative (Negative); Blood Urine Negative (Negative); Color Urine Dark Yellow; Epithelial Cell Urine Auto >30 /lpf (0-5); Glucose Urine UA Negative (Negative); Ketones Urine Trace (Negative); Leukocyte Esterase Urine Negative (Negative); Nitrite Urine Negative (Negative); Protein Urine Trace (Negative); RBC Urine Automated 0-4 /hpf (0-4); Specific Gravity Urine 1.023 (1.000-1.030); Urobilinogen Urine Negative (Negative); pH Urine 6.5 (4.5-7.5)
[2022-02-15] MEDS ORDERED: OPTIRAY 350 100ml IV ONE (21:44)
[2022-02-15 21:49] LABS: Urine Potassium 40.1 mmol/L
--- NOTE | 2022-02-15 22:35 | CT Scan Report ---
CT SCAN OF THE ABDOMEN AND PELVIS WITH IV CONTRAST CLINICAL HISTORY: Upper abdominal pain. COMPARISON STUDY: Abdominal CT dated 01/25/2013. TECHNIQUE: Following the IV administration of 88 cc of Optiray 350, CT scan of the abdomen and pelvi s is performed from the lung bases to the proximal femora. Images are reviewed in the axial, sagittal , and coronal planes. IV contrast was administered without complication. A dose lowering technique wa s utilized adhering to the principles of ALARA. CT DOSE: 606.50 mGy.cm FINDINGS: Lung bases: The heart is normal in size and without pericardial effusion. The coronary arteries are d ensely calcified. There is elevation of the right hemidiaphragm with associated right basilar atelect asis. There is no airspace consolidation typical for pneumonia or pleural effusion. Liver: The contrast-enhanced liver is normal in size, contour, and attenuation. There is no intrahepa tic biliary ductal dilatation. The hepatic veins and portal veins are patent. A 12 mm hypodensity in the hepatic dome on image #16 may represent a hemangioma. An indeterminant calcification containing l esion in the right lobe is seen on image #56. These have been present dating back to 2012 and are of doubtful significance. Gallbladder: Unremarkable. Spleen: Normal in size and attenuation. Pancreas: Unremarkable. Adrenal glands: Unremarkable. Kidneys: The contrast enhanced kidneys demonstrate mild cortical atrophy and are without hydronephros is. The kidneys enhance symmetrically. Scattered subcentimeter cortical hypodensities likely represen t cysts but are too small for definitive characterization. Abdominal vasculature: The abdominal aorta is normal in course and caliber noting moderate atheroscle rotic calcification. Bowel: There is mild to moderate colonic diverticulosis without CT evidence of acute diverticulitis. No bowel obstruction is seen. [id number] fecal retention is noted throughout the colon. There i s a tiny duodenal diverticulum. The appendix is well-visualized and normal. Peritoneum: There is no intraperitoneal free air or abdominal ascites. There is a fat-containing umbi lical hernia. Lymphadenopathy: None. Pelvic viscera: The bladder is decompressed, and the wall appears thickened and hyperemic. The uterus is surgically absent. No adnexal lesion is seen. Skeletal structures: The skeletal structures are osteopenic. There is mild to moderate lumbosacral sp ondylosis. No lytic or blastic lesions are seen. IMPRESSION: 1. Question cystitis. Correlate with clinical findings and urinalysis. 2. Colonic diverticulosis without CT evidence of acute diverticulitis. 3. Advanced coronary artery calcification. 4. Additional findings as above. ACT 112: Negative or not required by law. Electronically signed by: Marlon Jean M.D. 02/15/2022 10:33 PM
[2022-02-15] MEDS ORDERED: cefTRIAXone SODIUM 2,000 MG/70 ML BAG IV STA (22:50)
[2022-02-15] MEDS ORDERED: ONDANSETRON INJ 2 MG/ML 2 ML VIAL IV STA (23:41)
[2022-02-16] MEDS ORDERED: ATENOLOL 25 MG TABLET PO STA (00:02)
[2022-02-16] MEDS ORDERED: POTASSIUM CHLORIDE PWD 20 MEQ PACK PO STA (00:03)
[2022-02-16] MEDS ORDERED: ACETAMINOPHEN 325 MG TAB PO STA (00:11)
[2022-02-16] MEDS ORDERED: hydrALAZINE HCL 20 MG/ML VIAL IV STA (00:13)
[2022-02-16] MEDS ORDERED: PROMETHAZINE 12.5 MG/50.5 ML NSS IV ONE (00:17)
[2022-02-16] MEDS ORDERED: PROMETHAZINE 12.5 MG/50.5 ML BAG IV STA (00:18)
--- NOTE | 2022-02-16 01:25 | CT Scan Report ---
CT SCAN OF THE BRAIN WITHOUT IV CONTRAST CLINICAL HISTORY: Headache. Generalized weakness. COMPARISON STUDY: No priors. TECHNIQUE: Unenhanced axial CT scan of the brain is performed from the vertex to the skull base. A do se lowering technique was utilized adhering to the principles of ALARA. CT DOSE: 1228.24 mGy.cm FINDINGS: Brain parenchyma: There is age-related involutional change noting advanced subcortical and periventri cular microangiopathic disease. There is no hemorrhage, mass effect, or evidence of acute territorial ischemia by CT criteria. Hopkins-white matter differentiation is preserved. No extra-axial fluid collec tion is seen. Ventricles, sulci, cisterns: Prominent secondary to involutional change. Intracranial vasculature: There is atherosclerotic calcification of the cavernous carotid arteries. Calvarium: Unremarkable. Sinuses and mastoids: The visualized paranasal sinuses are clear. There is a left mastoid effusion. T he right mastoid air cells are well pneumatized. Orbits: The bony orbits are grossly intact. There are bilateral ocular lens implants. IMPRESSION: There is no hemorrhage, mass effect, or evidence of acute territorial ischemia by CT martín dumont. ACT 112: Negative or not required by law. Electronically signed by: Marlon Jean M.D. 02/16/2022 1:23 AM
--- NOTE | 2022-02-16 01:26 | History & Physical Report ---
Date of Service February 16, 2022 Assessment & Plan (1) Acute hyponatremia: Plan: Multifactorial : Poor p.o. intake secondary to complicated UTI (hx recurrent UTI/history stress/urge incontinence), no overt sepsis for now Home diuretics contributory Hypokalemia secondary to poor p.o. intake, diuretic rx hyperlipidemia, on statin Rx CRI, creatinine better than baseline MGUS, patient follows with [facility] administrative aide chronic anemia, hemoglobin at baseline hypothyroidism, TSH markedly elevated New prediabetes diagnosis, hemoglobin A1c of 5.8 from outpatient draw Medical telemetry Careful correction of sodium May need Nephrology evaluation Hold home diuretics for now Urine CS, Ceftriaxone Replace potassium Increase daily levothyroxine dose from 125 mcg 5 times a week to 150 mcg daily and recheck level outpatient after 6 weeks DVT prophylaxis. Heparin subcu Full code Text document was generated using [employer] voice recognition software. It may contain grammatical or spelling errors. Kindly contact undersigned for clarification of any documentation item in question. History of Present Illness Chief Complaint: Abnormal blood work, abdominal and flank pain. Primary Care Provider: Alcon Apple DO History obtained from patient and records. Medical history significant for hypertension, hyperlipidemia, recurrent UTI/history stress/urge incontinence, MGUS, CRI (baseline creatinine 1.5), chronic anemia (baseline hemoglobin 11), hypothyroidism, prediabetes. Few days history of achy right flank pain radiating to the abdomen. No fever. No chills. No chest pain, no shortness of breath. Poor appetite. Some weakness. No gross hematuria. Patient seen at PCP's office 2 days ago. UA noted to be nitrite positive with glucose. Hemoglobin A1c noted to be 5.8. Serum sodium noted to be 128, potassium 3.3. Ciprofloxacin prescribed for UTI. PCP recommended ER evaluation with note of abnormal blood work. Patient noted achy headache and nausea symptoms while waiting at the ER. Highest SBP 180s during ER stay. IV Ceftriaxone administered at the ER. 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 Allergies Allergy/AdvReac Type Severity Reaction Status Date / Time No Known Allergies Allergy Unknown Verified 10/21/22 21:33 Home Medications Medication Instructions Recorded Confirmed Type Mucous Relief 1,200 mg PO DIRECTED PRN 02/15/22 02/15/22 History Congestion acetaminophen 500 mg tablet 1,000 mg PO DIRECTED PRN 02/15/22 02/15/22 History (Tylenol Extra Strength) PAIN/FEVER albuterol sulfate 90 mcg/actuation 2 puff inhalation DIRECTED PRN 02/15/22 02/15/22 History aerosol inhaler Shortness Of Breath amlodipine 5 mg tablet 5 mg PO DAILY 02/15/22 02/15/22 History aspirin 81 mg tablet,delayed 81 mg PO DAILY 02/15/22 02/15/22 History release atenolol 25 mg tablet 25 mg PO BID 02/15/22 02/15/22 History atorvastatin 40 mg tablet 40 mg PO HS 02/15/22 02/15/22 History ciprofloxacin HCl 500 mg tablet 500 mg PO BID 02/15/22 02/15/22 History levothyroxine 125 mcg tablet 125 mcg PO 5XWK 02/15/22 02/15/22 History lorazepam 0.5 mg tablet 0.5 mg PO TID PRN Anxiety 02/15/22 02/15/22 History triamterene 37.5 1 tab PO DAILY 02/15/22 02/15/22 History mg-hydrochlorothiazide 25 mg tablet Past Med/Surg History Medical History (Updated 02/16/22 @ 00:30 by Blade Landry MD) Frequent PVCs Hypertension Trochanteric bursitis of both hips Surgical History (Updated 02/16/22 @ 00:27 by Blade Landry MD) H/O: hysterectomy Social History (Updated 02/16/22 @ 00:28 by Blade Landry MD) Smoking Status: Never smoker Hx Alcohol Use: No Hx Substance Use: No Preferred Language: Tamazight Communication Ability: Effective Assembly Instructions Writer Required: No Beliefs That Will Affect Care: None Current Living Situation: Spouse Feels Safe at Home: Yes Safety Concerns: Feels Safe At This Time Assistive Devices: Glasses Assistive Devices Comment: reading glasses Review of Systems Review of Systems: As per HPI, all other systems reviewed and negative Physical Exam Physical Exam: GENERAL: Slightly uncomfortable, pleasant, obese, no respiratory distress SKIN: Pallor,, warm HEENT: Pale palpebral conjunctivae, no ptosis, dry buccal mucosa NECK : Supple, short neck, no tenderness CHEST : CTA, no tenderness HEART : RRR, no obvious murmurs ABDOMEN: Some distention, minimal right-sided abdominal tenderness EXTREMITIES : Minimal LE swelling, no LE tenderness, no other conspicuous deformities noted NEUROLOGIC : Coherent, no facial asymmetry, no other gross focality Results & Data Results & Data ([facility]) Vital Signs (Past 12 Hours) Vital Signs Temp Pulse Pulse Resp BP BP Pulse Ox 02/15/22 23:00 62 12 164/96 H 96 02/15/22 22:02 58 L 17 151/81 H 94 02/15/22 20:52 59 L 18 150/89 H 96 02/15/22 19:27 36.6 C 74 16 142/85 H 94 O2 Del Method 02/15/22 23:00 02/15/22 22:02 02/15/22 20:52 Room Air 02/15/22 19:27 Room Air Laboratory Results Laboratory Results WBC 5.27 K/ul (4.8-10.8) 02/15/22 19:42 RBC 4.01 M/uL (3.93-5.22) 02/15/22 19:42 Hgb 11.5 g/dl (12.0-16.0) L 02/15/22 19:42 Hct 34.0 % (34.1-44.9) L 02/15/22 19:42 MCV 84.8 fL (80.0-100.0) 02/15/22 19:42 MCH 28.7 pg (25.0-34.0) 02/15/22 19:42 MCHC 33.8 g/dL (32.0-36.0) 02/15/22 19:42 RDW Std Deviation 53.3 fL (36.4-46.3) H 02/15/22 19:42 RDW Coeff of Joyce 17.2 % (11.5-14.5) H 02/15/22 19:42 Plt Count 393 K/uL (130-400) 02/15/22 19:42 MPV 9.3 fL (9.4-12.3) L 02/15/22 19:42 Immature Gran % (Auto) 0.4 % 02/15/22 19:42 Neut % (Auto) 56.1 % 02/15/22 19:42 Lymph % (Auto) 33.8 % 02/15/22 19:42 Starr % (Auto) 8.7 % 02/15/22 19:42 Eos % (Auto) 0.6 % 02/15/22 19:42 Baso % (Auto) 0.4 % 02/15/22 19:42 Neut # (Auto) 2.96 K/uL (1.4-6.5) 02/15/22 19:42 Lymph # (Auto) 1.78 K/uL (1.2-3.4) 02/15/22 19:42 Starr # (Auto) 0.46 K/uL (0.24-0.82) 02/15/22 19:42 Eos # (Auto) 0.03 K/uL (0-0.50) 02/15/22 19:42 Baso # (Auto) 0.02 K/uL (0-0.2) 02/15/22 19:42 Immature Gran # (Auto) 0.02 K/uL (0.00-0.02) 02/15/22 19:42 Sodium 128 mmol/L (136-145) L 02/15/22 19:42 Potassium 3.0 mmol/L (3.5-5.1) L 02/15/22 19:42 Chloride 90 mmol/L (98-107) L 02/15/22 19:42 Carbon Dioxide 30 mmol/L (21-32) 02/15/22 19:42 Anion Gap 8 (3-11) 02/15/22 19:42 BUN 22 mg/dl (6-23) 02/15/22 19:42 Creatinine 1.37 mg/dl (0.6-1.2) H 02/15/22 19:42 Est Cr Clr Drug Dosing 33.2 ml/min 02/15/22 19:42 Est GFR ( Amer) 42.7 ml/min 02/15/22 19:42 Est GFR (Non-Af Amer) 36.9 ml/min 02/15/22 19:42 BUN/Creatinine Ratio 16.1 (10-20) 02/15/22 19:42 Glucose 87 mg/dl (70-99(Fasting)) 02/15/22 19:42 Osmolality 273 mOsm/kg (280-300) L 02/15/22 19:42 Calcium 9.5 mg/dl (8.5-10.1) 02/15/22 19:42 Magnesium 2.0 mg/dl (1.7-2.4) 02/15/22 19:42 Total Bilirubin 0.6 mg/dl (0.2-1.0) 02/15/22 19:42 AST 18 U/L (13-39) 02/15/22 19:42 ALT 14 U/L (7-52) 02/15/22 19:42 Alkaline Phosphatase 105 U/L (34-104) H 02/15/22 19:42 Total Protein 8.4 gm/dl (6.0-8.3) H 02/15/22 19:42 Albumin 4.1 gm/dl (3.4-5.0) 02/15/22 19:42 Globulin 4.3 gm/dl (2.5-4.0) H 02/15/22 19:42 Albumin/Globulin Ratio 1.0 (0.9-2) 02/15/22 19:42 Lipase 41 U/L (11-82) 02/15/22 19:42 Urine Color Dark Yellow 02/15/22 21:15 Urine Appearance Clear (Clear) 02/15/22 21:15 Urine pH 6.5 (4.5-7.5) 02/15/22 21:15 Ur Specific [place] 1.023 (1.000-1.030) 02/15/22 21:15 Urine Protein Trace (Negative) H 02/15/22 21:15 Urine Glucose (UA) Negative (Negative) 02/15/22 21:15 Urine Ketones Trace (Negative) H 02/15/22 21:15 Urine Blood Negative (Negative) 02/15/22 21:15 Urine Nitrite Negative (Negative) 02/15/22 21:15 Urine Bilirubin Negative (Negative) 02/15/22 21:15 Urine Urobilinogen Negative (Negative) 02/15/22 21:15 Ur Leukocyte Esterase Negative (Negative) 02/15/22 21:15 Urine WBC (Auto) 5-10 /hpf (0-5) H 02/15/22 21:15 Urine RBC (Auto) 0-4 /hpf (0-4) 02/15/22 21:15 U Hyaline Cast (Auto) 1-5 /lpf (0-5) 02/15/22 21:15 U Epithel Cells (Auto) >30 /lpf (0-5) H 02/15/22 21:15 Urine Bacteria (Auto) 1+ (Negative) H 02/15/22 21:15 Urine Osmolality 545 mOsm/kg (500-800) 02/15/22 21:15 Urine Sodium 95 mmol/L 02/15/22 21:15 Urine Potassium 40.1 mmol/L 02/15/22 21:15 Urine Chloride 90 mmol/L 02/15/22 21:15 SARS-CoV-2, RNA, NAAT NEGATIVE (NEGATIVE) 02/15/22 23:20 Impressions Abdomen/Pelvis CT 02/15/22 21:03 CT SCAN OF THE ABDOMEN AND PELVIS WITH IV CONTRAST CLINICAL HISTORY: Upper abdominal pain. COMPARISON STUDY: Abdominal CT dated 01/25/2013. TECHNIQUE: Following the IV administration of 88 cc of Optiray 350, CT scan of the abdomen and pelvis is performed from the lung bases to the proximal femora. Images are reviewed in the axial, sagittal, and coronal planes. IV contrast was administered without complication. A dose lowering technique was utilized adhering to the principles of ALARA. CT DOSE: 606.50 mGy.cm FINDINGS: Lung bases: The heart is normal in size and without pericardial effusion. The coronary arteries are densely calcified. There is elevation of the right hemidiaphragm with associated right basilar atelectasis. There is no airspace consolidation typical for pneumonia or pleural effusion. Liver: The contrast-enhanced liver is normal in size, contour, and attenuation. There is no intrahepatic biliary ductal dilatation. The hepatic veins and portal veins are patent. A 12 mm hypodensity in the hepatic dome on image #16 may represent a hemangioma. An indeterminant calcification containing lesion in the right lobe is seen on image #56. These have been present dating back to 2012 and are of doubtful significance. Gallbladder: Unremarkable. Spleen: Normal in size and attenuation. Pancreas: Unremarkable. Adrenal glands: Unremarkable. Kidneys: The contrast enhanced kidneys demonstrate mild cortical atrophy and are without hydronephrosis. The kidneys enhance symmetrically. Scattered subcentimeter cortical hypodensities likely represent cysts but are too small f or definitive characterization. Abdominal vasculature: The abdominal aorta is normal in course and caliber noting moderate atherosclerotic calcification. Bowel: There is mild to moderate colonic diverticulosis without CT evidence of acute diverticulitis. No bowel obstruction is seen. [id number] fecal retention is noted throughout the colon. There is a tiny duodenal diverticulum. The appendix is well-visualized and normal. Peritoneum: There is no intraperitoneal free air or abdominal ascites. There is a fat-containing umbilical hernia. Lymphadenopathy: None. Pelvic viscera: The bladder is decompressed, and the wall appears thickened and hyperemic. The uterus is surgically absent. No adnexal lesion is seen. Skeletal structures: The skeletal structures are osteopenic. There is mild to moderate lumbosacral spondylosis. No lytic or blastic lesions are seen. IMPRESSION: 1. Question cystitis. Correlate with clinical findings and urinalysis. 2. Colonic diverticulosis without CT evidence of acute diverticulitis. 3. Advanced coronary artery calcification. 4. Additional findings as above. ACT 112: Negative or not required by law. Electronically signed by: Marlon Jean M.D. 02/15/2022 10:[address] 02/16/22 00:11 CT SCAN OF THE BRAIN WITHOUT IV CONTRAST CLINICAL HISTORY: Headache. Generalized weakness. COMPARISON STUDY: No priors. TECHNIQUE: Unenhanced axial CT scan of the brain is performed from the vertex to the skull base. A dose lowering technique was utilized adhering to the principles of ALARA. CT DOSE: 1228.24 mGy.cm FINDINGS: Brain parenchyma: There is age-related involutional change noting advanced subcortical and periventricular microangiopathic disease. There is no hemorrhage, mass effect, or evidence of acute territorial ischemia by CT criteria. Hopkins-white matter differentiation is preserved. No extra-axial fluid collection is seen. Ventricles, sulci, cisterns: Prominent secondary to involutional change. Intracranial vasculature: There is atherosclerotic calcification of the cavernous carotid arteries. Calvarium: Unremarkable. Sinuses and mastoids: The visualized paranasal sinuses are clear. There is a left mastoid effusion. The right mastoid air cells are well pneumatized. Orbits: The bony orbits are grossly intact. There are bilateral ocular lens implants. IMPRESSION: There is no hemorrhage, mass effect, or evidence of acute territorial ischemia by CT criteria. ACT 112: Negative or not required by law. Electronically signed by: Marlon Jean M.D. 02/16/2022 1:23 AM Diagnostic Findings EKG as per my interpretation : Rate 65, NSR, normal axis, diffuse T wave flattening
--- NOTE | 2022-02-16 01:28 | XRay Report ---
SINGLE VIEW CHEST CLINICAL HISTORY: Hyponatremia FINDINGS: An AP, portable, upright chest radiograph is compared to study dated 03/23/2019. Correlatio n is made with chest CT dated 04/01/2019. The heart is mildly enlarged noting atherosclerotic calcific ation of the thoracic aorta. The pulmonary vasculature is noncongested. There is chronic elevation of the right hemidiaphragm and bibasilar atelectasis. No large pleural effusion or pneumothorax is seen . The skeletal structures are osteopenic. The bony thorax is grossly intact. IMPRESSION: No acute cardiopulmonary abnormality. ACT 112: Negative or not required by law. Electronically signed by: Marlon Jean M.D. 02/16/2022 1:27 AM
[2022-02-16] MEDS ORDERED: HYDROmorphone INJ 0.5 MG/0.5 ML SYR IV PRN (01:46)
[2022-02-16] MEDS ORDERED: oxyCODONE HCL IR 5 MG TAB (IMMEDIATE RELEASE) PO PRN (01:46)
[2022-02-16] MEDS ORDERED: PROMETHAZINE HCL 12.5 MG in SODIUM CHLORIDE 0.9% 50 ML IV PRN (02:39)
[2022-02-16] MEDS ORDERED: LORazepam 0.5 MG TAB PO PRN (02:39)
[2022-02-16] MEDS ORDERED: ACETAMINOPHEN 325 MG TAB PO PRN (02:39)
[2022-02-16 02:56] LABS: Thyroid Stimulating Hormone 98.569 uIu/ml (0.300-4.500)
[2022-02-16 03:38] LABS: T4 Free Thyroxine 0.64 ng/dl (0.61-1.60)
[2022-02-16 04:33] LABS: Basophils # (auto) 0.04 K/uL (0-0.2); Basophils % (auto) 0.8 %; Eosinophils # (auto) 0.03 K/uL (0-0.50); Eosinophils % (auto) 0.6 %; Hematocrit (blood only) 31.2 % (34.1-44.9); Hemoglobin 10.4 g/dl (12.0-16.0); Immature Granulocytes # (auto) 0.02 K/uL (0.00-0.02); Immature Granulocytes % (auto) 0.4 %; Lymphocytes % (auto) 25.3 %; Mean Corpuscular Hemoglobin 28.3 pg (25.0-34.0); Mean Corpuscular Hgb Conc 33.3 g/dL (32.0-36.0); Mean Platelet Volume 9.5 fL (9.4-12.3); Monocytes # (auto) 0.39 K/uL (0.24-0.82); Monocytes % (auto) 7.6 %; Neutrophils # (auto) 3.35 K/uL (1.4-6.5); Neutrophils % (auto) 65.3 %; Platelet Count 342 K/uL (130-400); RDW Coefficient of Variation 17.4 % (11.5-14.5); RDW Standard Deviation 54.4 fL (36.4-46.3); Red Blood Count 3.67 M/uL (3.93-5.22); White Blood Count 5.13 K/ul (4.8-10.8)
[2022-02-16 05:35] LABS: Calcium 8.8 mg/dl (8.5-10.1); Creatinine Clr Calc Pharmacy 36.6 ml/min; Est GFR (African American) 47.7 ml/min; Est GFR (Non-African American) 41.2 ml/min; Potassium 3.8 mmol/L (3.5-5.1)
[2022-02-16] MEDS ORDERED: SODIUM CHLORIDE 0.9% 1000ML 1,000 ML IV ONE (05:49)
[2022-02-16] MEDS: HEPARIN SOD 5,000 UNIT/0.5 ML VIAL SQ SCH ×3 (05:52→20:40)
[2022-02-16] MEDS ORDERED: LEVOTHYROXINE SODIUM 125 MCG TABLET PO SCH (06:30)
--- NOTE | 2022-02-16 07:06 | Electrocardiogram Report ---
Test Reason : Blood Pressure : / mmHG Vent. Rate : 065 BPM Atrial Rate : 065 BPM P-R Int : 176 ms QRS Dur : 084 ms QT Int : 314 ms P-R-T Axes : 103 018 190 degrees QTc Int : 326 ms Poor data quality, interpretation may be adversely affected Normal sinus rhythm Nonspecific ST abnormality Abnormal ECG Confirmed by Wiliam Young ([id number]) on 02/16/2022 7:06:11 AM Referred By: Alcon Apple Confirmed By:Mike Young
[2022-02-16] MEDS: amLODIPine BESYLATE 5 MG TAB PO SCH (09:52)
[2022-02-16] MEDS: ATENOLOL 25 MG TABLET PO SCH ×2 (09:52→20:39)
[2022-02-16] MEDS: ASPIRIN 81 MG ECTAB PO SCH (09:52)
--- NOTE | 2022-02-16 15:03 | Hospitalist Progress Note ---
Date of Service February 16, 2022 Assessment & Plan (1) Acute hyponatremia: Plan: Pt was sent to the ER for abnormal lab with low sodium with 128 Possible related to poor intake and diuretic Na 129 today Continue to hold diuretic with triamterene- HCTZ Continue monitor BMP General weakness CT head showed no acute intracranial abnormality Continue PT/OT Fall precaution Hypothyroidism TSH 98.5 Levothyroxine increased to 150mcg Check TSH in 4 to 6 weeks Abnormal UA Pt said that outpatient urine test showed no infection and she was told to stop oral abx Starting on IV Ceftriaxone Follow up urine cx CKD Creatinine stable Continue monitor BMP DVT prophylaxis. Heparin subcu Full code Admission and Anticipated Discharge Date Admission Date: February 16, 2022 Subjective Pt was seen and examined for follow up of hyponatremia and weakness Lying in bed resting comfortable in bed with no acute distress Pt said that she feels OK Pt said that she feels weak with low energy She said that she vomited in the ER because she could not stand the smell of the cleaning product denies any chest pain, palpitation, dizziness and SOB Review of Systems Review of Systems: All systems reviewed & are unremarkable except as noted in Subjective Physical Exam Physical Exam: General- No acute distress Head- atraumatic Eyes- PERRL, EOMI, ENT- oropharynx clear Neck- supple, no JVD Lungs- clear to auscultation Heart- regular rhythm; no murmur Abdomen- normal bowel sounds, soft, nontender Extremities- no calf tenderness Neuro- alert, oriented x 3; PERRL, EOMI; no facial palsy; no dysarthria Skin- warm & dry Results & Data Results & Data ([facility]) Vital Signs (Past 12 Hours) Vital Signs Temp Pulse Resp BP Pulse Ox O2 Del Method 02/16/22 11:07 36.7 C 56 L 16 145/76 H 94 Room Air 02/16/22 07:48 36.5 C 63 18 165/78 H 97 Room Air 02/16/22 03:39 36.8 C 60 18 130/80 98 Room Air
[2022-02-16] MEDS ORDERED: ATORVASTATIN 40 MG TAB PO SCH (21:00)
[2022-02-16] MEDS ORDERED: cefTRIAXone SODIUM 2,000 MG in DEXTROSE 5% 50 ML IV SCH (22:00)
[2022-02-17] MEDS: HEPARIN SOD 5,000 UNIT/0.5 ML VIAL SQ SCH ×2 (05:36→14:41)
[2022-02-17] MEDS ORDERED: DOCUSATE SODIUM/SENNA 50/8.6MG TAB PO PRN (06:30)
[2022-02-17 07:03] LABS: BUN Creatinine Ratio 14.3 (10-20); Calcium 8.7 mg/dl (8.5-10.1); Creatinine Clr Calc Pharmacy 41.2 ml/min; Est GFR (African American) 58.9 ml/min; Est GFR (Non-African American) 50.8 ml/min; Potassium 3.5 mmol/L (3.5-5.1)
[2022-02-17] MEDS: ASPIRIN 81 MG ECTAB PO SCH (07:39)
[2022-02-17] MEDS: amLODIPine BESYLATE 5 MG TAB PO SCH (07:39)
[2022-02-17] MEDS: ATENOLOL 25 MG TABLET PO SCH (07:39)
[2022-02-17] MEDS ORDERED: LEVOTHYROXINE SODIUM 150 MCG TABLET PO SCH (09:00)
--- NOTE | 2022-03-03 17:52 | Discharge Summary ---
Date of Service February 17, 2022 Admission HPI Per Admitting Provider History obtained from patient and records. Medical history significant for hypertension, hyperlipidemia, recurrent UTI/history stress/urge incontinence, MGUS, CRI (baseline creatinine 1.5), chronic anemia (baseline hemoglobin 11), hypothyroidism, prediabetes. Few days history of achy right flank pain radiating to the abdomen. No fever. No chills. No chest pain, no shortness of breath. Poor appetite. Some weakness. No gross hematuria. Patient seen at PCP's office 2 days ago. UA noted to be nitrite positive with glucose. Hemoglobin A1c noted to be 5.8. Serum sodium noted to be 128, potassium 3.3. Ciprofloxacin prescribed for UTI. PCP recommended ER evaluation with note of abnormal blood work. Patient noted achy headache and nausea symptoms while waiting at the ER. Highest SBP 180s during ER stay. IV Ceftriaxone administered at the ER. 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 Admission Exam Per Admitting Provider GENERAL: Slightly uncomfortable, pleasant, obese, no respiratory distress SKIN: Pallor,, warm HEENT: Pale palpebral conjunctivae, no ptosis, dry buccal mucosa NECK : Supple, short neck, no tenderness CHEST : CTA, no tenderness HEART : RRR, no obvious murmurs ABDOMEN: Some distention, minimal right-sided abdominal tenderness EXTREMITIES : Minimal LE swelling, no LE tenderness, no other conspicuous deformities noted NEUROLOGIC : Coherent, no facial asymmetry, no other gross focality Principal Diagnosis Acute hyponatremia: General weakness Hypothyroidism Chronic kidney disease Discharge Exam General- No acute distress Head- atraumatic Eyes- PERRL, EOMI, ENT- oropharynx clear Neck- supple, no JVD Lungs- clear to auscultation Heart- regular rhythm; no murmur Abdomen- normal bowel sounds, soft, nontender Extremities- no calf tenderness Neuro- alert, oriented x 3; PERRL, EOMI; no facial palsy; no dysarthria Skin- warm & dry Discharge Data Allergies Allergy/AdvReac Type Severity Reaction Status Date / Time No Known Allergies Allergy Unknown Verified 10/21/22 21:33 Consultations 02/15/22 23:12 ED Decision to Admit Stat Ordered Studies 02/15/22 21:03 CT abd pelvis IV con only Stat 02/16/22 00:11 CT head/brain wo con Urgent Laboratory Results WBC 5.13 K/ul (4.8-10.8) 02/16/22 03:56 RBC 3.67 M/uL (3.93-5.22) L 02/16/22 03:56 Hgb 10.4 g/dl (12.0-16.0) L 02/16/22 03:56 Hct 31.2 % (34.1-44.9) L 02/16/22 03:56 MCV 85.0 fL (80.0-100.0) 02/16/22 03:56 MCH 28.3 pg (25.0-34.0) 02/16/22 03:56 MCHC 33.3 g/dL (32.0-36.0) 02/16/22 03:56 RDW Std Deviation 54.4 fL (36.4-46.3) H 02/16/22 03:56 RDW Coeff of Joyce 17.4 % (11.5-14.5) H 02/16/22 03:56 Plt Count 342 K/uL (130-400) 02/16/22 03:56 MPV 9.5 fL (9.4-12.3) 02/16/22 03:56 Immature Gran % (Auto) 0.4 % 02/16/22 03:56 Neut % (Auto) 65.3 % 02/16/22 03:56 Lymph % (Auto) 25.3 % 02/16/22 03:56 [place] % (Auto) 7.6 % 02/16/22 03:56 Eos % (Auto) 0.6 % 02/16/22 03:56 Baso % (Auto) 0.8 % 02/16/22 03:56 Neut # (Auto) 3.35 K/uL (1.4-6.5) 02/16/22 03:56 Lymph # (Auto) 1.30 K/uL (1.2-3.4) 02/16/22 03:56 [place] # (Auto) 0.39 K/uL (0.24-0.82) 02/16/22 03:56 Eos # (Auto) 0.03 K/uL (0-0.50) 02/16/22 03:56 Baso # (Auto) 0.04 K/uL (0-0.2) 02/16/22 03:56 Immature Gran # (Auto) 0.02 K/uL (0.00-0.02) 02/16/22 03:56 Sodium 130 mmol/L (136-145) L 02/17/22 06:02 Potassium 3.5 mmol/L (3.5-5.1) 02/17/22 06:02 Chloride 92 mmol/L (98-107) L 02/17/22 06:02 Carbon Dioxide 32 mmol/L (21-32) 02/17/22 06:02 Anion Gap 6 (3-11) 02/17/22 06:02 BUN 15 mg/dl (6-23) 02/17/22 06:02 Creatinine 1.05 mg/dl (0.6-1.2) 02/17/22 06:02 Est Cr Clr Drug Dosing 41.2 ml/min 02/17/22 06:02 Est GFR ( Amer) 58.9 ml/min 02/17/22 06:02 Est GFR (Non-Af Amer) 50.8 ml/min 02/17/22 06:02 BUN/Creatinine Ratio 14.3 (10-20) 02/17/22 06:02 Glucose 110 mg/dl (70-99(Fasting)) H 02/17/22 06:02 Osmolality 273 mOsm/kg (280-300) L 02/15/22 19:42 Calcium 8.7 mg/dl (8.5-10.1) 02/17/22 06:02 Magnesium 2.0 mg/dl (1.7-2.4) 02/15/22 19:42 Total Bilirubin 0.6 mg/dl (0.2-1.0) 02/15/22 19:42 AST 18 U/L (13-39) 02/15/22 19:42 ALT 14 U/L (7-52) 02/15/22 19:42 Alkaline Phosphatase 105 U/L (34-104) H 02/15/22 19:42 Total Protein 8.4 gm/dl (6.0-8.3) H 02/15/22 19:42 Albumin 4.1 gm/dl (3.4-5.0) 02/15/22 19:42 Globulin 4.3 gm/dl (2.5-4.0) H 02/15/22 19:42 Albumin/Globulin Ratio 1.0 (0.9-2) 02/15/22 19:42 Lipase 41 U/L (11-82) 02/15/22 19:42 TSH 98.569 uIu/ml (0.300-4.500) H 02/15/22 19:48 Free T4 0.64 ng/dl (0.61-1.60) 02/15/22 19:48 Urine Color Dark Yellow 02/15/22 21:15 Urine Appearance Clear (Clear) 02/15/22 21:15 Urine pH 6.5 (4.5-7.5) 02/15/22 21:15 Ur Specific [place] 1.023 (1.000-1.030) 02/15/22 21:15 Urine Protein Trace (Negative) H 02/15/22 21:15 Urine Glucose (UA) Negative (Negative) 02/15/22 21:15 Urine Ketones Trace (Negative) H 02/15/22 21:15 Urine Blood Negative (Negative) 02/15/22 21:15 Urine Nitrite Negative (Negative) 02/15/22 21:15 Urine Bilirubin Negative (Negative) 02/15/22 21:15 Urine Urobilinogen Negative (Negative) 02/15/22 21:15 Ur Leukocyte Esterase Negative (Negative) 02/15/22 21:15 Urine WBC (Auto) 5-10 /hpf (0-5) H 02/15/22 21:15 Urine RBC (Auto) 0-4 /hpf (0-4) 02/15/22 21:15 U Hyaline Cast (Auto) 1-5 /lpf (0-5) 02/15/22 21:15 U Epithel Cells (Auto) >30 /lpf (0-5) H 02/15/22 21:15 Urine Bacteria (Auto) 1+ (Negative) H 02/15/22 21:15 Urine Osmolality 545 mOsm/kg (500-800) 02/15/22 21:15 Urine Sodium 95 mmol/L 02/15/22 21:15 Urine Potassium 40.1 mmol/L 02/15/22 21:15 Urine Chloride 90 mmol/L 02/15/22 21:15 Nasal Screen MRSA (PCR) Negative (Negative) 02/16/22 03:30 SARS-CoV-2, RNA, NAAT NEGATIVE (NEGATIVE) 02/15/22 23:20 Impressions Abdomen/Pelvis CT 02/15/22 21:03 CT SCAN OF THE ABDOMEN AND PELVIS WITH IV CONTRAST CLINICAL HISTORY: Upper abdominal pain. COMPARISON STUDY: Abdominal CT dated 01/25/2013. TECHNIQUE: Following the IV administration of 88 cc of Optiray 350, CT scan of the abdomen and pelvis is performed from the lung bases to the proximal femora. Images are reviewed in the axial, sagittal, and coronal planes. IV contrast was administered without complication. A dose lowering technique was utilized adhering to the principles of ALARA. CT DOSE: 606.50 mGy.cm FINDINGS: Lung bases: The heart is normal in size and without pericardial effusion. The coronary arteries are densely calcified. There is elevation of the right hemidiaphragm with associated right basilar atelectasis. There is no airspace consolidation typical for pneumonia or pleural effusion. Liver: The contrast-enhanced liver is normal in size, contour, and attenuation. There is no intrahepatic biliary ductal dilatation. The hepatic veins and portal veins are patent. A 12 mm hypodensity in the hepatic dome on image #16 may represent a hemangioma. An indeterminant calcification containing lesion in the right lobe is seen on image #56. These have been present dating back to 2012 and are of doubtful significance. Gallbladder: Unremarkable. Spleen: Normal in size and attenuation. Pancreas: Unremarkable. Adrenal glands: Unremarkable. Kidneys: The contrast enhanced kidneys demonstrate mild cortical atrophy and are without hydronephrosis. The kidneys enhance symmetrically. Scattered subcentimeter cortical hypodensities likely represent cysts but are too small for definitive characterization. Abdominal vasculature: The abdominal aorta is normal in course and caliber noting moderate atherosclerotic calcification. Bowel: There is mild to moderate colonic diverticulosis without CT evidence of acute diverticulitis. No bowel obstruction is seen. [id number] fecal retention is noted throughout the colon. There is a tiny duodenal diverticulum. The appendix is well-visualized and normal. Peritoneum: There is no intraperitoneal free air or abdominal ascites. There is a fat-containing umbilical hernia. Lymphadenopathy: None. Pelvic viscera: The bladder is decompressed, and the wall appears thickened and hyperemic. The uterus is surgically absent. No adnexal lesion is seen. Skeletal structures: The skeletal structures are osteopenic. There is mild to moderate lumbosacral spondylosis. No lytic or blastic lesions are seen. IMPRESSION: 1. Question cystitis. Correlate with clinical findings and urinalysis. 2. Colonic diverticulosis without CT evidence of acute diverticulitis. 3. Advanced coronary artery calcification. 4. Additional findings as above. ACT 112: Negative or not required by law. Electronically signed by: Marlon Jean M.D. 02/15/2022 10:33 PM Chest X-Ray 02/16/22 00:02 SINGLE VIEW CHEST CLINICAL HISTORY: Hyponatremia FINDINGS: An AP, portable, upright chest radiograph is compared to study dated 03/23/2019. Correlation is made with chest CT dated 04/01/2019. The heart is mildly enlarged noting atherosclerotic calcification of the thoracic aorta. The pulmonary vasculature is noncongested. There is chronic elevation of the right hemidiaphragm and bibasilar atelectasis. No large pleural effusion or pneumothorax is seen. The skeletal structures are osteopenic. The bony thorax is grossly intact. IMPRESSION: No acute cardiopulmonary abnormality. ACT 112: Negative or not required by law. Electronically signed by: Marlon Jean M.D. 02/16/2022 1:[address] 02/16/22 00:11 CT SCAN OF THE BRAIN WITHOUT IV CONTRAST CLINICAL HISTORY: Headache. Generalized weakness. COMPARISON STUDY: No priors. TECHNIQUE: Unenhanced axial CT scan of the brain is performed from the vertex to the skull base. A dose lowering technique was utilized adhering to the principles of ALARA. CT DOSE: 1228.24 mGy.cm FINDINGS: Brain parenchyma: There is age-related involutional change noting advanced subcortical and periventricular microangiopathic disease. There is no hemorrhage, mass effect, or evidence of acute territorial ischemia by CT criteria. Hopkins-white matter differentiation is preserved. No extra-axial fluid collection is seen. Ventricles, sulci, cisterns: Prominent secondary to involutional change. Intracranial vasculature: There is atherosclerotic calcification of the cavernous carotid arteries. Calvarium: Unremarkable. Sinuses and mastoids: The visualized paranasal sinuses are clear. There is a left mastoid effusion. The right mastoid air cells are well pneumatized. Orbits: The bony orbits are grossly intact. There are bilateral ocular lens implants. IMPRESSION: There is no hemorrhage, mass effect, or evidence of acute territorial ischemia by CT criteria. ACT 112: Negative or not required by law. Electronically signed by: Marlon Jean M.D. 02/16/2022 1:23 AM Hospital Course (1) Acute hyponatremia: Pt was sent to the ER for abnormal lab with low sodium with 128 Possible related to poor intake and diuretic Na 130 today case discussed with nephrology ( no official consult placed) recommended to hold on diuretic and ok to monitor BMP outpatient Continue to hold diuretic with triamterene- HCTZ Continue monitor BMP General weakness CT head showed no acute intracranial abnormality Continue PT/OT Fall precaution Hypothyroidism TSH 98.5 Levothyroxine increased to 150mcg Check TSH in 4 to 6 weeks Abnormal UA Pt said that outpatient urine test showed no infection and she was told to stop oral abx Urine cx grew lactobacilli Will d/c IV Ceftriaxone CKD Creatinine stable Continue monitor BMP DVT prophylaxis. Heparin subcu Full code disposition Discharge home today Follow up with primary care provider in 1 week Total Time Total Time Spent Total Time Spent (In Minutes): 35 minutes Discharge Plan Discharge Items Patient Disposition: Home - Self-Care Reason For Visit: HYPONATREMIA Discharge Diagnosis: Acute hyponatremia: General weakness Hypothyroidism Chronic kidney disease Activity: Resume your previous activity Non-emergency contact: Primary Care Provider Call non-emergency contact if: you have any medication questions Follow-up/Referrals: Alcon Apple DO [Primary Care Provider] - Diet: Regular Addtl Attending Provider Instructions: Follow up with your primary care provider within 1 week ( office will call for the appointment ) Check your BMP in 1 week to monitor your electrolytes Continue to hold Triamterene/hydrochlorothiazide due to low sodium, your provider will advise you when to resume it. Continue monitor your blood pressure an bring your blood pressure log at your next appointment Levothyroxine increased to 150 mcg daily Check TSH in 4 to 6 weeks to monitor your thyroid function Seek medical attention if your symptoms worsening Pending Studies at Discharge: No Stand-Alone Forms: My Qbaka, Smoking Cessation Medications and DC Order Prescriptions: New levothyroxine [Synthroid] 150 mcg Tablet 150 mcg PO DAILY Qty: 30 0RF Continued atorvastatin 40 mg tablet 40 mg PO HS atenolol 25 mg tablet 25 mg PO BID amlodipine 5 mg tablet 5 mg PO DAILY aspirin 81 mg Tablet,Delayed Release (Dr/Ec) 81 mg PO DAILY acetaminophen [Tylenol Extra Strength] 500 mg Tablet 1,000 mg PO DIRECTED PRN (Reason: PAIN/FEVER) lorazepam 0.5 mg tablet 0.5 mg PO TID PRN (Reason: Anxiety) Rx Instructions: PER PT "USUALLY TAKE ONE AT HS TO HELP SLEEP". albuterol sulfate 90 mcg/actuation HFA aerosol inhaler 2 puff INHALATION DIRECTED PRN (Reason: Shortness Of Breath) Mucous Relief 1,200 mg PO DIRECTED PRN (Reason: Congestion) Discontinued ciprofloxacin HCl 500 mg tablet 500 mg PO BID Rx Instructions: TOLD TO STOP----STARTED 02/14/22 FOR 7 DAYS. levothyroxine 125 mcg tablet 125 mcg PO [id number] Rx Instructions: DO NOT TAKE ON FRIDAY & SUNDAYS. triamterene-hydrochlorothiazid 37.5-25 mg tablet 1 tab PO DAILY Discharge Orders: Discharge Order (Routine); Ordered 02/17/22 Ordered By: Barbara Jacobs Admission Data Admit Date/Time: 02/16/22 01:43 Attending Provider: Barbara Jacobs Admit Provider: Michele Cheung Primary Care Provider: Alcon Apple Other Providers: Michele Cheung Other Interventions: Discharge Summary Assessment (RN) Last Done: 02/17/22 15:27
== END 2022-02-17 17:52 | disposition home or self-care (01) | DRG 641 ==
LOC: ED 19:25 → 2N 02-16 01:43